=== PATIENT | male | born 1965 | race Caucasian/White ===

== ENCOUNTER 2019-01-08 08:06 | Observation (INO) | payer OTHER ==
[~2019-01-08] VITALS: Ht 182.9 cm; Wt 153.9 kg
[~2019-01-08 08:06] MED LIST: ACET500T71 PO; ASPI-650 PO; IBUP200T64 PO; METH750T87 PO; METO-99 PO; OXYC1TAB7 PO; POTA99TA2 PO; TRIA1TAB5 PO
[2019-01-08] MEDS ORDERED: ALBUTEROL/IPRATROPIUM 2.5MG/0.5MG, 3 ML ONE (08:54)
[2019-01-08] MEDS ORDERED: ALBUTEROL/IPRATROPIUM 2.5MG/0.5MG, 3 ML NPPB ONE (09:00)
[2019-01-08 09:14] LABS: BASOPHILS # (AUTO) 0.03 x10^3/uL (0-0.1); BASOPHILS % (AUTO) 0 % (0-1); EOSINOPHILS # (AUTO) 0.21 x10^3/uL (0-0.4); EOSINOPHILS % (AUTO) 2 % (1-7); LYMPHOCYTES # (AUTO) 2.61 x10^3/uL (1-3.4); LYMPHOCYTES % (AUTO) 27 % (22-44); MD NO; MEAN CORPUSCULAR HEMOGLOBIN 28.2 pg (27.5-34.5); MEAN CORPUSCULAR HGB CONC 32.7 g/dL (33.2-36.2); MEAN CORPUSCULAR VOLUME 86.2 fL (81-97); MEAN PLATELET VOLUME 7.9 fL (7.4-10.4); MONOCYTES # (AUTO) 0.73 x10^3/uL (0.2-0.8); MONOCYTES % (AUTO) 8 % (2-9); NEUTROPHILS # (AUTO) 6.05 x10^3/uL (1.8-6.8); NEUTROPHILS % (AUTO) 63 % (42-75); PLATELET COUNT 314 x10^3/uL (130-400); RED BLOOD COUNT 5.41 x10^6/uL (4.38-5.82); RED CELL DISTRIBUTION WIDTH 15.1 % (9.4-14.8)
[2019-01-08 09:32] LABS: ALBUMIN 3.8 g/dL (3.4-5.0); ANION GAP 8 mmol/L (5-15); CALCIUM 9.1 mg/dL (8.5-10.1); CHLORIDE 103 mmol/L (98-107)
[2019-01-08 09:38] LABS: CREATININE 1.11 mg/dL (0.7-1.3); TROPONIN I < 0.015 ng/mL (0.000-0.045)
[2019-01-08] MEDS ORDERED: SODIUM CHLORIDE FLUSH 10ML SYR IVF ONE (10:30)
--- NOTE | 2019-01-08 10:48 | NUR ---
CT WAITING FOR IV ACCESS
--- NOTE | 2019-01-08 11:30 | NUR ---
PT TO CT
[2019-01-08] MEDS ORDERED: OMNIPAQUE 350 MG/ML, 150 ML BOTTLE ONE (11:51)
[2019-01-08] MEDS ORDERED: SODIUM CHLORIDE FLUSH 10ML SYR IVF PRN (12:30)
[2019-01-08] MEDS ORDERED: BISACODYL 10 MG SUPP PR PRN (13:00)
[2019-01-08] MEDS ORDERED: ENOXAPARIN 40 MG/0.4 ML SQ SCH (13:00)
[2019-01-08] MEDS ORDERED: POLYETHYLENE GLYCOL 17 GM PACKET PO PRN (13:00)
[2019-01-08] MEDS ORDERED: ENALAPRILAT 1.25 MG/ML, 2ML IVPush PRN (13:00)
[2019-01-08] MEDS ORDERED: DOCUSATE 100 MG CAPSULE PO PRN (13:00)
[2019-01-08] MEDS ORDERED: ACETAMINOPHEN 325 MG TABLET PO PRN (13:00)
[2019-01-08] MEDS ORDERED: CEFTRIAXONE PMX 1GM/50ML 50 ML IV SCH (13:00)
[2019-01-08] MEDS ORDERED: ONDANSETRON 2MG/ML, 2ML IVPush PRN (13:00)
[2019-01-08] MEDS ORDERED: POTASSIUM CHLORIDE 20 MEQ TAB.ER.PRT PO ONE (13:00)
--- NOTE | 2019-01-08 13:27 | NUR ---
BREAK RN: REPORT TO JONATHAN URBINA PT PREPARED FOR TRANSPORT.
[2019-01-08] MEDS ORDERED: methylPREDNISolone SOD SUCC 125 MG/2 ML ONE (13:28)
[2019-01-08] MEDS ORDERED: CEFTRIAXONE PMX 1GM/50ML 50 ML ONE (13:28)
[2019-01-08] MEDS ORDERED: FUROSEMIDE 20 MG/2 ML IV ONE (13:30)
[2019-01-08] MEDS: methylPREDNISolone SOD SUCC 125 MG/2 ML IVPush SCH ×2 (13:36→20:30)
--- NOTE | 2019-01-08 13:40 | NUR ---
PT ALERT AND INTERACTING WELL, NO S/S DISTRESS UPON DEPARTURE FROM ED.
[2019-01-08 14:00] VITALS: BP 128/87
[2019-01-08] MEDS ORDERED: APIX5TAB4 PO (14:05)
[2019-01-08] MEDS: METOPROLOL SUCCINATE 100 MG TAB.ER.24H PO SCH ×2 (15:03→20:31)
[2019-01-08] MEDS: DOXYCYCLINE 100 MG in DEXTROSE 5% 250 ML IV SCH (15:03)
[2019-01-08 15:11] LABS: TROPONIN I < 0.015 ng/mL (0.000-0.045)
[2019-01-08 15:52] LABS: RAPID INFLUENZA A Negative (Negative); RAPID INFLUENZA B Negative (Negative)
[2019-01-08 19:18] VITALS: BP 129/76
[2019-01-08] MEDS: GUAIFENESIN ER 600 MG TABLET PO SCH (20:30)
[2019-01-08] MEDS: SODIUM CHLORIDE FLUSH 10ML SYR IVF SCH (20:31)
[2019-01-08] MEDS ORDERED: APIXABAN 5 MG TABLET PO SCH (21:00)
[2019-01-08 21:25] LABS: TROPONIN I < 0.015 ng/mL (0.000-0.045)
[2019-01-09] MEDS: methylPREDNISolone SOD SUCC 125 MG/2 ML IVPush SCH ×2 (01:43→07:49)
[2019-01-09 02:00] VITALS: BP 109/72
[2019-01-09] MEDS: DOXYCYCLINE 100 MG in DEXTROSE 5% 250 ML IV SCH (02:52)
[2019-01-09] MEDS ORDERED: ASPIRIN 325 MG TABLET EC PO SCH (06:00)
[2019-01-09 06:56] VITALS: BP 119/83
[2019-01-09 07:35] LABS: ANION GAP 10 mmol/L (5-15); CHLORIDE 102 mmol/L (98-107); CREATININE 1.19 mg/dL (0.7-1.3)
[2019-01-09 07:36] LABS: MEAN CORPUSCULAR HGB CONC 32.7 g/dL (33.2-36.2); MEAN CORPUSCULAR VOLUME 85.7 fL (81-97); MEAN PLATELET VOLUME 8.3 fL (7.4-10.4); PLATELET COUNT 364 x10^3/uL (130-400); RED BLOOD COUNT 5.62 x10^6/uL (4.38-5.82); RED CELL DISTRIBUTION WIDTH 14.7 % (9.4-14.8)
[2019-01-09 07:58] LABS: BASOPHILS # (AUTO) 0.03 x10^3/uL (0-0.1); BASOPHILS % (AUTO) 0 % (0-1); EOSINOPHILS # (AUTO) 0.01 x10^3/uL (0-0.4); EOSINOPHILS % (AUTO) 0 % (1-7); LYMPHOCYTES # (AUTO) 3.46 x10^3/uL (1-3.4); LYMPHOCYTES % (AUTO) 22 % (22-44); MD SCAN; MONOCYTES % (AUTO) 1 % (2-9); NEUTROPHILS # (AUTO) 12.29 x10^3/uL (1.8-6.8); NEUTROPHILS % (AUTO) 77 % (42-75)
[2019-01-09] MEDS: GUAIFENESIN ER 600 MG TABLET PO SCH (08:26)
[2019-01-09] MEDS: METOPROLOL SUCCINATE 100 MG TAB.ER.24H PO SCH (08:28)
[2019-01-09] MEDS: SODIUM CHLORIDE FLUSH 10ML SYR IVF SCH (08:29)
[2019-01-09] MEDS ORDERED: APIXABAN 5 MG TABLET HOMEMEDPO SCH (09:00)
[2019-01-09] MEDS ORDERED: TRIAMTERENE/HCTZ 75/50MG TABLET PO SCH (09:00)
[2019-01-09] MEDS ORDERED: TEMPLATE NON-FORMULARY MED. (Potassium Gluconate** 99 MG) PO SCH (09:00)
[2019-01-09] MEDS ORDERED: CEFD300C37 PO (12:10)
[2019-01-09] MEDS ORDERED: DOXY100T PO (12:10)
[2019-01-09] MEDS ORDERED: PRED20TA PO (12:10)
[2019-01-09] MEDS ORDERED: GUAI600T31 PO (12:11)
== END 2019-01-09 13:45 | disposition home or self-care (01) ==
LOC: ED 10:06 → EDIP 12:19 → INTOOBSV 12:19 → 4EST 13:44 → DCLOUNGE 01-09 13:31
PROVIDERS: ADMIT Hospitalist; ATTEND Hospitalist
DX: R55 Syncope and collapse (principal); J20.9 Acute bronchitis, unspecified; I48.91 Unspecified atrial fibrillation; I11.9 Hypertensive heart disease without heart failure; E87.6 Hypokalemia; D68.69 Other thrombophilia; E11.43 Type 2 diabetes mellitus with diabetic autonomic (poly)neuropathy; J44.0 Chronic obstructive pulmonary disease with (acute) lower respiratory infection; J44.1 Chronic obstructive pulmonary disease with (acute) exacerbation; K80.20 Calculus of gallbladder without cholecystitis without obstruction; Z82.49 Family history of ischemic heart disease and other diseases of the circulatory system; Z72.0 Tobacco use; Z83.3 Family history of diabetes mellitus
CPT/HCPCS: 36415; 71045; 71275; 80048; 82040; 83880; 84443; 84484; 85025; 87070; 87205; 87400; 93005; 93880; 94640; 96365; 96366; 96367; 96372; 96375; 96376; 99284; G0378; J0696; J1650; J1940; J2930; J7060; J7512; J7620; Q9967